=== PATIENT | male | born 1995 | race African-American/Black ===

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

== ENCOUNTER 2017-01-17 00:02 | Emergency (ER) | payer BC, MEDICAID ==
[~2017-01-17] VITALS: Ht 182.9 cm; Wt 71.7 kg
[~2017-01-17 00:02] MED LIST: AZIT250T81 PO; MNTL10T PO; PRED20TA PO
--- OUTSIDE RECORDS SUMMARY | 2017-01-17 00:05 | XMS REPORT | Continuity of Care Document ---
Author Author [facility] Organization [facility] Address Unknown Phone Unavailable Allergies Active Description Code Type Severity Reaction Onset Reported/Identified Relationship to Patient Clinical Status Yes Penicillins Penicillins Drug Allergy Unknown unknown 03/20/2016 Yes Penicillins Penicillins Drug Allergy Unknown unknown 03/20/2016 Medications Problems Procedures Results Encounters ACCT No. Visit Date/Time Discharge Status Pt. Type Provider Facility Loc./Unit Complaint [id number] 09/28/2014 13:37:00 2013 23:59:00 DIS Outpatient Fabián Carvalho V [facility] ni/ ankle injury/08/17/2014/peterson/danni
--- OUTSIDE RECORDS SUMMARY | 2017-01-17 00:07 | XMS REPORT | Continuity of Care Document ---
[...] Status Pt. Type Provider Facility Loc./Unit Complaint [id number] 09/28/2014 13:37:00 2013 23:59:00 DIS Outpatient Fabi[facility]val[facility]/ [facility]/08/17/2014/peterson/danni
[2017-01-17] MEDS ORDERED: ALBU8.5H2 IH (00:37)
[2017-01-17] MEDS ORDERED: FEXO-95 PO (00:37)
[2017-01-17] MEDS ORDERED: methylPREDNISolone 80 MG/ML (DEPO MEDROL) VIAL IM ONE (01:10)
[2017-01-17 01:39] VITALS: BP 122/67
== END 2017-01-17 01:40 | disposition home or self-care (01) ==
LOC: ED 00:04
DX: R09.82 Postnasal drip (principal)
CPT/HCPCS: 96372; 99282; J1040